=== PATIENT | female | born 1975 | race Caucasian/White ===

== ENCOUNTER 2016-10-12 05:20 | Emergency (ER) | payer BC, OTHER ==
[~2016-10-12] VITALS: Ht 162.6 cm; Wt 53.5 kg
[~2016-10-12 05:20] MED LIST: NAPROSYN500 MG PO
[2016-10-12] MEDS ORDERED: LEVOTHYROXINE 0.1 MG PO (05:25)
[2016-10-12] MEDS ORDERED: ALDACTONE50 MG PO (05:26)
[2016-10-12] MEDS ORDERED: IMITREX100 MG PO (05:26)
[2016-10-12] MEDS ORDERED: TOPAMAX 100 MG100 MG PO (05:26)
[2016-10-12 06:08] LABS: ABSOLUTE NEUTROPHILS 9.7 thou/uL (1.4-8.2); BASOPHILS 0.4 % (0.0-2.0); EOSINOPHILS 0.9 % (0.0-3.0); HEMATOCRIT 40.7 % (37.0-47.0); HEMOGLOBIN 13.8 gm/dL (12.0-15.0); LYMPHOCYTES 16.1 % (24.0-44.0); MCH 34.9 pg (26.0-34.0); MCV 102.9 fL (80.0-100.0); MONOCYTES 6.2 % (1.0-8.0); PLATELET COUNT 209 thou/uL (150-400); POLYS 76.4 % (36.0-66.0); RBC 3.96 mil/uL (4.20-5.00); RDW 13.3 % (10.5-14.5); WBC 12.6 thou/uL (4.0-11.0)
[2016-10-12 06:11] LABS: MANUAL DIFF NO
[2016-10-12 06:22] LABS: CREATININE 1.3 mg/dL (0.6-1.3); POTASSIUM 3.8 mmol/L (3.5-5.1)
[2016-10-12 06:43] LABS: URINE BILIRUBIN NEGATIVE (Negative); URINE BLOOD 3+ (Negative); URINE COLOR YELLOW; URINE GLUCOSE-RANDOM* NEGATIVE (Negative); URINE KETONES NEGATIVE (Negative); URINE LEUKOCYTES-REFLEX 3+ (Negative); URINE PROTEIN (DIPSTICK) TRACE (Negative); URINE SPECIFIC GRAVITY 1.015 (1.003-1.035); URINE UROBILINOGEN 0.2 E.U./dl (0.2-1.0)
[2016-10-12] MEDS ORDERED: KEFLEX500 MG PO (06:52)
[2016-10-12] MEDS ORDERED: ZOFRAN ODT4 MG PO (06:59)
[2016-10-12 07:09] LABS: SQUAMOUS 0-3 Few /LPF (0-3)
[2016-10-12 07:10] LABS: CASTS None Seen /LPF (None Seen); CRYSTALS None Seen /LPF (None Seen); URINE RBC >20 Many /HPF (0-2); URINE WBC-REFLEX >25 Many /HPF (0-5)
[2016-10-12 07:17] VITALS: BP 104/63
== END 2016-10-12 07:18 | disposition home or self-care (01) ==
LOC: ER 05:20
PROVIDERS: Emergency Medicine
DX: N39.0 Urinary tract infection, site not specified (principal); E03.9 Hypothyroidism, unspecified; F10.99 Alcohol use, unspecified with unspecified alcohol-induced disorder; Z88.5 Allergy status to narcotic agent